=== PATIENT | male | born 1955 | race Caucasian/White ===

== ENCOUNTER → 2017-11-03 | Outpatient (CLI) | payer BC | END | disposition home or self-care (01) | LOC: ECHO 11:14 | DX: I07.1 Rheumatic tricuspid insufficiency (principal); K74.60 Unspecified cirrhosis of liver; J90 Pleural effusion, not elsewhere classified; R18.8 Other ascites | CPT/HCPCS: 93306 ==

== ENCOUNTER 2018-08-15 07:48 | Outpatient (CLI) | payer SELFPAY ==
[~2018-08-15] VITALS: Ht 177.8 cm; Wt 81.6 kg
[2018-08-15] VITALS (7 sets, daily range): BP systolic 115–131; BP diastolic 62–74
[~2018-08-15 07:48] MED LIST: CIPR500T94 PO; FURO-68 PO; POTA10TA12 PO
[2018-08-15] MEDS ORDERED: POTA10TA12 PO (08:00)
[2018-08-15] MEDS ORDERED: SPIR50TA4 PO (08:00)
[2018-08-15] MEDS ORDERED: LACT20SO PO (08:00)
[2018-08-15] MEDS ORDERED: FURO40TA4 PO (08:00)
[2018-08-15] MEDS ORDERED: CITA10TA8 PO (08:00)
--- NOTE | 2018-08-15 08:07 | RAD ---
Abdominal ultrasound, 08/15/2018: HISTORY: Alcoholic cirrhosis The gallbladder is within normal limits in size. It contains multiple echogenic foci compatible with gallstones. The gallbladder wall is mildly thickened measuring 4-5 mm. The common hepatic duct is slightly prominent measuring 7 mm. No hepatic mass or intrahepatic bile duct dilatation is seen. The pancreas and central retroperitoneum including the aorta and inferior vena cava were largely obscured by overlying bowel. The spleen is of normal size measuring 11 cm in length. No renal abnormality is detected. There is a moderate volume of ascites. IMPRESSION: 1. Cholelithiasis. 2. Mild gallbladder wall thickening which can be due to a variety of causes including liver disease, hypoproteinemia, ascites or cholecystitis. 3. Slight prominence of the common hepatic duct. 4. Moderate volume of ascites. 5. Obscuration of the pancreas and central retroperitoneum due to overlying bowel. Electronically signed by: Gee Morton MD (08/15/2018 8:04 AM) [facility]
[2018-08-15 08:11] LABS: BASO % 1 % (0-3); EOS # 0.1 x10^3/uL (0.0-0.7); EOS % 2 % (0-3); HEMATOCRIT 33.7 % (39.0-53.0); HEMOGLOBIN 11.7 g/dL (13.0-17.5); LYMPH # 0.7 x10^3/uL (1.0-4.8); LYMPH % 21 % (24-48); MEAN CORPUSCULAR HEMOGLOBIN 35 pg (25-35); MEAN CORPUSCULAR HGB CONC 35 g/dL (31-37); MEAN CORPUSCULAR VOLUME 101 fL (79-100); MONO # 0.4 x10^3/uL (0.0-1.1); MONO % 12 % (0-9); NEUT # 2.2 x10^3uL (1.8-7.7); NEUT % 64 % (31-73); PLATELET COUNT 85 x10^3/uL (140-400); RED BLOOD COUNT 3.32 x10^6/uL (4.30-5.70); RED CELL DISTRIBUTION WIDTH 16.3 % (11.5-14.5); WHITE BLOOD COUNT 3.5 x10^3/uL (4.0-11.0)
[2018-08-15 08:21] LABS: PROTHROMBIN TIME PATIENT 19.6 SEC (11.7-14.0)
[2018-08-15] MEDS ORDERED: LIDOCAINE WITH 8.4% SOD BICARB 3 ML DISP.SYRIN. ONE (09:44)
[2018-08-15] MEDS ORDERED: LIDOCAINE WITH 8.4% SOD BICARB 3 ML DISP.SYRIN. INJ ONE (10:00)
--- NOTE | 2018-08-15 10:35 | RAD ---
Procedure: Ultrasound guided paracentesis Clinical Indication: 63-year-old with abdominal ascites Sedation: Local anesthesia only Antibiotics: None Fluoro Time: None Contrast: Not applicable Sterility: The procedure was performed in its entirety using appropriate elements of sterile technique. Consent: The procedure was explained in its entirety to the patient or the patients designated marketing representative by a member of the treatment team, including a discussion of the risks, benefits and commonly accepted alternatives to the procedure, as well as the expected consequences of no therapy whatsoever. Discussion of the risks included, but was not limited to, those that are most frequent and those that are rare but possibly severe or life-threatening, as well as the possibility of unforeseen complications. Technique and Findings: Following informed consent, the patient was prepped and draped in the usual sterile fashion. Ultrasound interrogation of the abdomen revealed abdominal ascites. A hard copy ultrasound image was recorded. 1% Lidocaine was used to achieve local anesthesia over the area of interest, and a 6 [place] [id number] catheter was advanced into the peritoneal cavity under ultrasound guidance. 3950 cc of thin yellow ascites was then withdrawn. The catheter was removed and hemostasis was achieved with manual compression. Complications: No immediate Impression: 1. Ultrasound-guided paracentesis as described
== END 2018-08-15 11:07 | disposition home or self-care (01) ==
LOC: US 07:48
PROVIDERS: ATTEND Physician Assistant Medical
DX: K70.31 Alcoholic cirrhosis of liver with ascites (principal); K80.20 Calculus of gallbladder without cholecystitis without obstruction
CPT/HCPCS: 36415; 49083; 76700; 85025; 85610; 85730